=== PATIENT | male | born 1975 | race Caucasian/White ===

== ENCOUNTER 2016-06-16 21:33 | Emergency (ER) | payer BC, MEDICAID ==
[2016-06-16] MEDS ORDERED: OPTIRAY 350 100 ML VIAL HMH IV ONE (21:34)
[2016-06-16] MEDS ORDERED: ASPIRIN 81 MG CHEW TAB ONE (21:46)
[2016-06-16] MEDS ORDERED: MORPHINE 2 MG/ML SYR ONE (21:50)
== END 2016-06-17 01:51 | disposition home or self-care (01) ==
LOC: ER 21:33
CPT/HCPCS: 36415; 71010; 71275; 80053; 82550; 83735; 84484; 85025; 85610; 85730; 93005; 96374

== ENCOUNTER 2016-07-09 06:15 | Inpatient (IN) | payer MEDICAID ==
[2016-07-01 07:54] VITALS: BMI 33.3
[2016-07-01 08:00] VITALS: BP_SYST 120; RESP 20; TEMP 98.6
[~2016-07-09] VITALS: Ht 177.8 cm; Wt 105.3 kg
[2016-07-09] VITALS (22 sets, daily range): BP systolic 118–155; RESP 13–20; TEMP 97.6–99.2; Ht 177.8 cm; Wt 105.3 kg
[~2016-07-09 06:15] MED LIST: CEFAZOLIN 2,000 MG in SODIUM CHLORIDE 0.9% 100 ML IV ONE
[2016-07-09] MEDS ORDERED: MIDAZOLAM 2 MG/2 ML INJ IV ONE (07:00)
[2016-07-09] MEDS ORDERED: LACT RINGERS 1,000 ML IV SCH (07:00)
[2016-07-09] MEDS ORDERED: LIDOCAINE 1% BUFFERED 1 ML SYR INTRADERM PRN (07:00)
[2016-07-09] MEDS ORDERED: GLYCOPYRROLATE 0.2 MG/ML VIAL IV ONE ×2 (07:00→10:02)
[2016-07-09] MEDS ORDERED: DILAUDID 1 MG/ML AMP IV PRN (07:15)
[2016-07-09] MEDS ORDERED: MORPHINE 2 MG/ML SYR IV PRN (07:15)
[2016-07-09] MEDS ORDERED: MORPHINE 4 MG/ML SYR IV PRN (07:15)
[2016-07-09] MEDS ORDERED: ONDANSETRON 4 MG VIAL IV PRN (07:15)
[2016-07-09] MEDS ORDERED: OXYCODONE 5 MG TAB PO PRN (07:15)
[2016-07-09] MEDS ORDERED: MEPERIDINE 25 MG/ML IV PRN (07:15)
[2016-07-09] MEDS ORDERED: ROCURONIUM 50 MG VIAL IV ONE (10:02)
[2016-07-09] MEDS ORDERED: ACETAMINOPHEN 1,000 MG/100 ML IV ONE (10:02)
[2016-07-09] MEDS ORDERED: DILAUDID 1 MG/ML AMP IV ONE (10:02)
[2016-07-09] MEDS ORDERED: FENTANYL 100 MCG/2 ML AMP IV ONE (10:02)
[2016-07-09] MEDS ORDERED: ONDANSETRON 4 MG VIAL IV PUSH ONE (10:02)
[2016-07-09] MEDS ORDERED: LIDOCAINE 2% SYR 5 ML IV ONE (10:02)
[2016-07-09] MEDS ORDERED: DEXAMETHASONE 4 MG/ML VIAL IV ONE (10:02)
[2016-07-09] MEDS ORDERED: PROPOFOL 20 ML VIAL IV ONE (10:02)
[2016-07-09] MEDS ORDERED: NEOSTIGMINE 10 MG/10 ML VIAL IV ONE (10:02)
[2016-07-09] MEDS ORDERED: SUCCINYLCHOLINE 20 MG/ML VL IV ONE (10:02)
[2016-07-09] MEDS ORDERED: ONDANSETRON 4 MG VIAL IV PUSH PRN (11:00)
[2016-07-09] MEDS ORDERED: ACETAMINOPHEN 1,000 MG/100 ML IV SCH (11:00)
[2016-07-09] MEDS ORDERED: SODIUM CHLORIDE 0.9% 1,000 ML IV SCH ×2 (11:00→16:40)
[2016-07-09] MEDS ORDERED: NITROGLYCERIN SL 0.4 MG TAB SL SCH (11:00)
[2016-07-09] MEDS ORDERED: DEXTROSE 50% SYRINGE 50 ML IV PRN (11:00)
[2016-07-09] MEDS ORDERED: GLUCAGON 1 MG VIAL IM PRN (11:00)
[2016-07-09] MEDS: CEFOXITIN 2,000 MG in SODIUM CHLORIDE 0.9% 100 ML IV SCH ×2 (13:16→19:31)
[2016-07-09] MEDS ORDERED: BUPIVACAINE 0.5% PF 30 ML NERVEBLOCK ONE (13:59)
[2016-07-09] MEDS: MORPHINE 2 MG/ML SYR IV PRN ×3 (14:26→19:30)
[2016-07-09] MEDS: ACETAMINOPHEN 1,000 MG/100 ML IV SCH ×2 (15:33→23:58)
[2016-07-09] MEDS: OXYCODONE 5 MG TAB PO PRN ×3 (16:23→23:58)
[2016-07-09] MEDS ORDERED: MISSING DOSE XX ONE (16:35)
[2016-07-09] MEDS: TETRAHYDROZOLINE HCL 15 ML BTL EYE EACH SCH ×2 (18:25→21:00)
[2016-07-09] MEDS: ROSUVASTATIN 5 MG TAB PO SCH (20:08)
[2016-07-09] MEDS: METOPROLOL XL 25 MG TAB PO SCH (20:08)
[2016-07-09] MEDS ORDERED: TETRAHYDROZOLINE HCL 15 ML BTL EYE EACH SCH (21:00)
[2016-07-09] MEDS ORDERED: LORAZEPAM 2 MG/ML VIAL IV ONE (22:15)
[2016-07-10] VITALS (8 sets, daily range): BP systolic 123–170; RESP 15–18; TEMP 97.3–98.8
[2016-07-10] MEDS: CEFOXITIN 2,000 MG in SODIUM CHLORIDE 0.9% 100 ML IV SCH ×2 (00:57→06:43)
[2016-07-10] MEDS: OXYCODONE 5 MG TAB PO PRN ×5 (03:43→21:07)
[2016-07-10] MEDS ORDERED: LORAZEPAM 2 MG/ML VIAL IV PRN (06:15)
[2016-07-10] MEDS: DEXTROSE 5% SALINE 0.45% 1,000 ML IV SCH (06:42)
[2016-07-10] MEDS: DILAUDID 1 MG/ML AMP IV PRN ×4 (06:43→22:08)
[2016-07-10] MEDS: TETRAHYDROZOLINE HCL 15 ML BTL EYE EACH SCH ×2 (08:01→21:08)
[2016-07-10] MEDS: LORAZEPAM 0.5 MG TAB PO PRN (16:58)
[2016-07-10] MEDS: ROSUVASTATIN 5 MG TAB PO SCH (21:04)
[2016-07-10] MEDS: METOPROLOL XL 25 MG TAB PO SCH (21:08)
[2016-07-11] MEDS: DILAUDID 1 MG/ML AMP IV PRN ×5 (01:03→23:26)
[2016-07-11] MEDS: OXYCODONE 5 MG TAB PO PRN ×5 (01:04→20:43)
[2016-07-11] MEDS: DEXTROSE 5% SALINE 0.45% 1,000 ML IV SCH ×2 (03:03→20:52)
[2016-07-11 03:50] VITALS: BP_SYST 137
[2016-07-11 03:51] VITALS: RESP 18; TEMP 97.5
[2016-07-11 07:27] VITALS: BP_SYST 127; RESP 16; TEMP 97.8
[2016-07-11] MEDS: TETRAHYDROZOLINE HCL 15 ML BTL EYE EACH SCH ×2 (08:39→20:44)
[2016-07-11] MEDS: LORAZEPAM 0.5 MG TAB PO PRN ×2 (10:08→23:30)
[2016-07-11 11:04] VITALS: BP_SYST 145; RESP 18; TEMP 97.4
[2016-07-11] MEDS: POLYETHYLENE GLYCOL 17 GM PACKET PO SCH (13:26)
[2016-07-11 15:56] VITALS: BP_SYST 143; RESP 20; TEMP 97.3
[2016-07-11 20:03] VITALS: BP_SYST 135; RESP 20; TEMP 98.5
[2016-07-11] MEDS: METOPROLOL XL 25 MG TAB PO SCH (20:42)
[2016-07-11] MEDS: ROSUVASTATIN 5 MG TAB PO SCH (20:42)
[2016-07-12 00:04] VITALS: BP_SYST 115; RESP 20; TEMP 97.9
[2016-07-12] MEDS: OXYCODONE 5 MG TAB PO PRN ×2 (03:03→10:48)
[2016-07-12] MEDS: DILAUDID 1 MG/ML AMP IV PRN ×3 (03:04→12:16)
[2016-07-12 03:54] VITALS: BP_SYST 124; RESP 20; TEMP 98
[2016-07-12 07:54] VITALS: BP_SYST 124; RESP 16; TEMP 97.4
[2016-07-12] MEDS: POLYETHYLENE GLYCOL 17 GM PACKET PO SCH (09:03)
[2016-07-12] MEDS: TETRAHYDROZOLINE HCL 15 ML BTL EYE EACH SCH ×2 (09:03→11:44)
[2016-07-12 12:34] VITALS: BP_SYST 126; RESP 16; TEMP 97.4
[2016-07-12 12:54] VITALS: BP_SYST 124; RESP 18; TEMP 97.4
[2016-07-12 13:05] VITALS: RESP 16
== END 2016-07-12 13:14 | disposition home or self-care (01) | DRG 658 ==
LOC: ENRESERVTM → ENRESERVDT → SDS 06:15 → ENPENDDIS 06:15 → 5THE 11:58
PROVIDERS: ADMIT Urology; ATTEND Urology
PROC: 0TT64ZZ Resection of Right Ureter, Percutaneous Endoscopic Approach (ICD-10-PCS; 2016-07-09)
PROC: 8E0W4CZ Robotic Assisted Procedure of Trunk Region, Percutaneous Endoscopic Approach (ICD-10-PCS; 2016-07-09)
PROC: 0TT04ZZ Resection of Right Kidney, Percutaneous Endoscopic Approach (ICD-10-PCS; principal; 2016-07-09 07:19)
DX: C64.1 Malignant neoplasm of right kidney, except renal pelvis (principal); E11.9 Type 2 diabetes mellitus without complications; Z79.82 Long term (current) use of aspirin; Z95.5 Presence of coronary angioplasty implant and graft; I25.10 Atherosclerotic heart disease of native coronary artery without angina pectoris; Z79.84 Long term (current) use of oral hypoglycemic drugs; I25.2 Old myocardial infarction; G89.18 Other acute postprocedural pain
CPT/HCPCS: 71010; 80048; 82553; 82947; 84484; 85025; 86850; 86900; 86901; 88307; 88311; 94799